=== PATIENT | male | born 1990 | race Caucasian/White ===

== ENCOUNTER → 2017-12-26 | Outpatient (CLI) | payer OTHER ==
--- NOTE | 2017-12-26 16:16 | Diagnostic Imaging Report ---
TECHNIQUE: Computed tomography imaging of the RIGHT ELBOW was performed WITHOUT injected contrast. HISTORY: Pain, trauma evaluate for fracture COMPARISON: None available. FINDINGS: No fracture. No osteonecrosis. No lytic or blastic lesion. Elbow joint alignment normal. No effusion. No arthropathy. Soft tissues unremarkable. No fluid collection or mass. IMPRESSION: Normal CT of the elbow Signed by: Dr. Phil Henson M.D. on 12/26/2017 4:12 PM
== END ==
LOC: CT 14:40
PROVIDERS: ATTEND Family Medicine
DX: M25.521 Pain in right elbow (principal); S59.901A Unspecified injury of right elbow, initial encounter; R93.7 Abnormal findings on diagnostic imaging of other parts of musculoskeletal system